=== PATIENT | female | born 2000 | race Caucasian/White ===

== ENCOUNTER 2021-03-23 12:51 | Emergency (ER) | payer OTHER, BC ==
[~2021-03-23] VITALS: Ht 172.7 cm; Wt 73.7 kg
[2021-03-23] MEDS ORDERED: DEXAMETHASONE 4 MG TABLET PO ONE (13:00)
--- NOTE | 2021-03-23 14:11 | NUR ---
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
[2021-03-23] MEDS ORDERED: DEXAMETHASONE 4 MG TABLET ONE (14:29)
[2021-03-23 15:48] VITALS: BP 125/78
== END 2021-03-23 15:50 | disposition home or self-care (01) ==
LOC: ED 15:08
DX: J02.0 Streptococcal pharyngitis (principal); Z90.89 Acquired absence of other organs
CPT/HCPCS: 87081; 87880; 99283

== ENCOUNTER 2021-05-02 22:53 | Emergency (ER) | payer OTHER, BC ==
[~2021-05-02] VITALS: Ht 170.2 cm; Wt 75.7 kg
[2021-05-02 23:00] VITALS: BP 134/94
[2021-05-03] MEDS ORDERED: ONDANSETRON 2MG/ML, 2ML IVPush ONE
[2021-05-03] MEDS ORDERED: MORPHINE SULFATE 4 MG/ML, 1ML IVPush PRN
[2021-05-03] MEDS ORDERED: SODIUM CHLORIDE FLUSH 10ML SYR IVF ONE
[2021-05-03] MEDS ORDERED: SODIUM CHLORIDE 0.9% 1,000ML IVBOLUS ONE
[2021-05-03] MEDS ORDERED: PROMETHAZINE 25 MG/ML, 1ML IM ONE
[2021-05-03 00:16] LABS: BASOPHILS % (AUTO) 0 % (0-1); EOSINOPHILS % (AUTO) 2 % (1-7); LYMPHOCYTES % (AUTO) 20 % (22-44); MEAN CORPUSCULAR HEMOGLOBIN 28.4 pg (27.0-34.8); MEAN PLATELET VOLUME 7.3 fL (7.4-10.4); MONOCYTES % (AUTO) 6 % (2-9); NEUTROPHILS % (AUTO) 71 % (42-75); PLATELET COUNT 301 x10^3/uL (130-400); RED BLOOD COUNT 4.89 x10^6/uL (3.82-5.3); RED CELL DISTRIBUTION WIDTH 13.6 % (9.6-15.2)
[2021-05-03 00:30] LABS: ALANINE AMINOTRANSFERASE 16 U/L (12-78); ALBUMIN 3.6 g/dL (3.4-5.0); ANION GAP 7 mmol/L (5-15); CALCIUM 9.1 mg/dL (8.5-10.1); CHLORIDE 101 mmol/L (98-107); CREATININE 0.68 mg/dL (0.55-1.02)
[2021-05-03 00:34] LABS: ALKALINE PHOSPHATASE 77 U/L (45-117); BILIRUBIN,TOTAL 0.5 mg/dL (0.2-1.0); TOTAL PROTEIN 7.9 g/dL (6.4-8.2)
--- NOTE | 2021-05-03 01:18 | NUR ---
PT. SIGNED REQUEST FOR DISCHARGE FOR WITH REGISTRAION AND LEFT THE BUILDING.
== END 2021-05-03 01:20 | disposition left against medical advice (07) ==
LOC: ED 23:15
DX: M79.662 Pain in left lower leg (principal); R11.10 Vomiting, unspecified; R94.31 Abnormal electrocardiogram [ECG] [EKG]; Z53.21 Procedure and treatment not carried out due to patient leaving prior to being seen by health care provider
CPT/HCPCS: 36415; 74022; 80053; 83690; 84703; 85025; 93005; 99285